=== PATIENT | male | born 1990 | race Hispanic/Latino ===

== ENCOUNTER 2016-07-23 18:52 | Emergency (ER) | payer OTHER ==
[~2016-07-23] VITALS: Ht 188 cm; Wt 68.2 kg
[2016-07-23 19:18] VITALS: BP 116/63; PULSE 89; RESP 18; O2SAT 94
--- NOTE | 2016-07-23 22:44 | ED.REPORT ---
HPI-Dental/Mouth Prob Date of Service Jul 23, 2016 ED Provider: Abilio Kent MD The patient is a 25 year old male who presents to the ED due to upper left tooth pain (#12) for the past 2 days. He woke up this morning with a very swollen left cheek. He has been on Amoxicillin for 2 days, 500 mg, 3x/day and has a prescription of codeine for pain. He is eating peanuts upon entering the room. He has an appointment with his dentist tomorrow. Nursing Notes Stated Complaint: SWOLLEN FACE Chief Complaint: Dental Nursing Notes Reviewed: Yes Allergies: Coded Allergies: No Known Allergies (Verified Allergy, Severe, 06/17/03) Uncoded Allergies: No Known Allergies (Allergy, Severe, 06/17/03) Scheduled PRN Naproxen (Naprosyn) 500 Mg Tablet 500 MG PO BID PRN PRN For Pain General Time Seen by MD: 22:43 Chief Complaint Tooth pain Hx Obtained From: Patient Arrived By: Walk-in Onset Occurred: 2 days ago Symptom Duration: Since onset Location: : Tooth upper L molar Quality: Painful Severity: Current: Mild Recent Healthcare: No recent doctor visit, No recent hospitalization Past Medical History Past Medical History none Past Surgical History none Smoking History Unknown if Ever Smoker Social History Other Social History: Local resident Ambulatory Status Independent Review of Systems Review of Systems Note: facial swelling Ears / Nose / Throat: Reports: Toothache Complete sys rev & neg: except as marked. Physical Exam Initial Vital Signs Vital Signs (First) Date Time Temp Pulse Resp B/P Pulse Ox O2 Delivery O2 Flow Rate FiO2 07/23/16 19:18 37.2 89 18 116/63 94 Room Air Initial VS: Reviewed General/Constitutional: Well-developed, Well-nourished Head / Eyes: Atraumatic, Normocephalic, PERRL Respiratory: Breath sounds normal, Clear to auscultation, No respiratory distress Cardiovascular: Regular rate & rhythm, Heart sounds normal, Intact distal pulses Abdomen / GI: Soft, Non-tender, No guarding, No rebound, No distention Back: No CVA tenderness Extremities: Vascular intact, Neuro intact, No swelling, No tenderness Skin: Warm, Dry, No cyanosis Neurologic: Alert, Oriented, Nonfocal Psychiatric: Mood/affect normal, Behavior normal, Normal thought content ENT: Pharynx NL, Tympanic membs NL very swollen left cheek no trismus no obvious drainable abscess a few scattered dental caries, nothing dominant floor of mouth is negative all problems on left upper jaw indicated #12 was the sore tooth Neck: Atraumatic, Supple, Full range of motion Re-Eval/Medical Decision Med Decision/Clinical Course 25-year-old with tender tooth in the upper left jaw rinses #12) and swelling in the cheek. All of his symptoms are confined to the upper jaw. No trismus no compromise of the airway or swallowing. Just begun two days ago on amoxicillin which she will continue. Single dose Decadron here. Naprosyn and when necessary Tylenol codeine. Follow-up with dentist already scheduled for tomorrow. Counseled Regarding: Diagnosis, Lab results, Need for follow-up, When/why to return to ED Discharge & Departure Primary Impression: Dental abscess Additional Impression: Toothache Disposition: Home Discharge Condition All VS Reviewed: Yes Condition: Stable Referrals: [facility] (PCP) Scribe Attestation Portion of this note were transcribed by Cindi Garcia. I, Dr. Kent, personally performed the history, physical exam, and medical decision-making: I reviewed and confirmed the accuracy for the information in the transcribed note. Signed by: gayle Childress, 07/23/16 [id number] copies to: [facility] Abilio Kent MD Jul 23, 2016 22:44 Cindi Garcia Jul 23, 2016 22:47
[2016-07-23] MEDS ORDERED: Ketorolac 30 mg/mL 2 mL Inj IM ONE (22:50)
[2016-07-23] MEDS ORDERED: Dexamethasone 20 mg/2 mL Oral Solution PO ONE (22:50)
[2016-07-23] MEDS ORDERED: NAPR500T PO (22:56)
== END 2016-07-23 23:03 | disposition home or self-care (01) ==
LOC: SED 18:52
DX: K04.7 Periapical abscess without sinus (principal); K08.89 Other specified disorders of teeth and supporting structures
CPT/HCPCS: 96372; 99283; J1885